=== PATIENT | female | born 1995 | race American Indian/Alaskan Native ===

== ENCOUNTER 2017-01-13 18:37 | Emergency (ER) | payer OTHER ==
[2017-01-13] MEDS ORDERED: TORADOL IV ONE (19:24)
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
[2017-01-13 21:10] VITALS: BP 113/72
== END 2017-01-13 21:20 | disposition home or self-care (01) ==
LOC: ED 18:37
DX: S16.1XXA Strain of muscle, fascia and tendon at neck level, initial encounter (principal); V49.9XXA Car occupant (driver) (passenger) injured in unspecified traffic accident, initial encounter; Y93.89 Activity, other specified; Y99.9 Unspecified external cause status; Y92.410 Unspecified street and highway as the place of occurrence of the external cause
CPT/HCPCS: 70450; 70486; 72125; 96374; 99284; J1885